=== PATIENT | female | born 1970 | race African-American/Black ===

== ENCOUNTER 2020-04-17 23:52 | Inpatient (IN) | payer MEDICAID ==
[~2020-04-17] VITALS: Ht 162.6 cm; Wt 78.0 kg
--- NOTE | 2020-04-18 00:18 | NUR ---
PT CAME TO ED FOR C/O CHEST PAIN 6/10 TIGHTNESS LIKE MIDSTERNAL RADIATING TO L SIDE OF NECK AND SHOULDER WELL ABDOMINAL PAIN 6/10 SHARP LIKE AFTER EATING DEL TACO. PT IS AAOX4, MILD DISTRESS NOTED. EKG DONE IN TRIAGE. MD UREÑA PERFORMED MSE. PT IN GOWN AND PLACED ON FULL CM, VSS. MEDICATED PER ORDERS, SEE EMAR FOR DETAILS. CALL LIGHT WITHIN REACH. WILL CONTINUE TO MONITOR PT.
[2020-04-18 00:43] LABS: BASOPHIL % 0.2 % (0-2); PLATELET COUNT 217 x10^3mcL (130-400)
[2020-04-18 00:46] LABS: RED CELL DISTRIBUTION WIDTH 15.5 % (11.5-14.5)
[2020-04-18 00:52] LABS: CALCIUM 8.5 mg/dL (8.5-10.1); CARBON DIOXIDE 22.6 mmol/L (21-32); POTASSIUM SERUM 3.8 mmol/L (3.5-5.1)
[2020-04-18 00:56] LABS: ALBUMIN 3.3 g/dL (3.4-5.0); BILIRUBIN TOTAL 0.42 mg/dL (0.20-1.00); TOTAL PROTEIN, SERUM 7.4 g/dL (6.4-8.2)
--- NOTE | 2020-04-18 02:09 | NUR ---
PATIENT IS MOANING/GROANING WITH COMPLAINT OF UPPER ABDOMINAL PAIN, AMBULATED TO THE BATHROOM.
--- NOTE | 2020-04-18 02:35 | NUR ---
SALINE LOCK INSERTED , PATIENT MEDICATED WITH LASIX AND MORPHINE. PATIENT WENT FOR CT SCAN.
--- NOTE | 2020-04-18 02:45 | NUR ---
PATIENT RETURN FROM CT REQUESTING TO HAVE DIAPER SO SHE CAN VOID,DOES NOT WANT TO GET UP TO THE BATHROOM. BED BRAMBILA WAS GIVEN, VOID SMALL AMOUNT.
--- NOTE | 2020-04-18 03:07 | NUR ---
NASAL SWAB SENT FOR [employer].
--- NOTE | 2020-04-18 03:50 | NUR ---
PATIENT HAS WOUND AVULSION OF THE RT 3RD FINGER. DRESSING AND SPLINT APPLIED. PATIENT MEDICATED WITH MOTRIN AND TYLENOL.
--- NOTE | 2020-04-18 04:01 | NUR ---
PATIENT IS WAITING FOR ADMISSION BED.
--- NOTE | 2020-04-18 04:05 | NUR ---
PATIENT D/C HOME.INSTRUCTION GIVEN.
--- NOTE | 2020-04-18 05:00 | NUR ---
PT CLEANED AND CHANGED INTO CLEAN AND DRY DIAPER. PT SHEET WAS CHANGED TO CLEAN SHEET. PT STOOD UP AT BEDSIDE AND ASSISTED WITH CLEANING AND CHANGING. PT A&OX4,NO ACUTE DISTRESS NOTED, RESP EVEN AND UNLABORED, RETURNED TO [facility] AND POSITIONED TO COMFORT.
[2020-04-18] MEDS ORDERED: LASIX20 MG PO (05:06)
[2020-04-18] MEDS ORDERED: ATORVASTATIN CA80 M1 PO (05:11)
[2020-04-18] MEDS ORDERED: CLOPIDOGREL75 M1 PO (05:11)
[2020-04-18] MEDS ORDERED: CARVEDILOL12.5 M1 PO (05:12)
--- NOTE | 2020-04-18 05:12 | NUR ---
REPORT WAS GIVEN TO YENY. PATIENT TRANSPORTED TO ROOM 234.
--- NOTE | 2020-04-18 05:14 | NUR ---
MD AWARE OF PATIENT'S HIGH BLOOD PRESSURE, NO NEW ORDER.
[2020-04-18 05:22] VITALS: BP 155/114
[2020-04-18 05:43] LABS: T3 TOTAL 0.89 ng/mL
[2020-04-18 05:50] LABS: FREE T4 1.38 ng/dL (0.76-1.46); FREE THYROXINE INDEX 3.3 ug/dL (1.4-4.5); T4(THYROXINE) 9.1 ug/dL (4.7-13.3)
--- NOTE | 2020-04-18 06:29 | NUR ---
ADMITTED THE PAIENT TO THE ROOM,PT WAS RECIEVEDTO THE BED MADE COMFORTABLE AND TELE MONITOR PUT ON THE PATIENMT AND IN NSR NO ECTOPY BUT WITH C/O OF CHEST PAIN RATE 3/10 ARCHING IN PAIN.ON INIATIL ASSESSMANT PT IS AAO REG RESP NO SOB R/A SAT 96%.ABDO IS SOFT OBESE WITH ACTIVE BOWEL SOUNDS,PT HAS HL TO THE RT AC SITE PATENT AND INTACT,TRACES OF EDEMA TO NABILA LLE WITH PALPABLE PULSES,PT WAS ORIENTED TO THE CALL LIGHT BED CONTROL BATHROONM AND CALL LIGHT MADE CLOSE TO THE PATIENT,MADE COMFORTABLE IN BED AND WILL CONTINUE TO MONITOR.
[2020-04-18 06:40] LABS: UA SPECIFIC GRAVITY 1.025 (1.005-1.035); microscopic required? YES; urine erythrocyte NEGATIVE (NEGATIVE)
[2020-04-18 07:19] LABS: AMPHETAMINE QUAL UR NONE DETECTED (See below)
--- NOTE | 2020-04-18 07:36 | NUR ---
RECEIVED PATIENT FROM HARPAL SAINI. PATIENT IN BED AT THIS TIME, APPEARS SOB. ASKS FOR ASSISTANCE TO BR, ABLE TO AMBULATE. UA SAMPLE COLLECTED. SPOKE WITH PATIENT ABOUT PLAN OF CARE TODAY INCLUDING MEDICATIONS AND TO WAIT FOR MEDICAL TEAM TO ARRIVE WELL LABORATORY TECHNOLOGY TEACHER. PATIENT AGREES. CALL LIGHT IN REACH AT THIS TIME.
[2020-04-18 07:41] VITALS: BP 124/84
[2020-04-18 09:13] LABS: CALCIUM 8.4 mg/dL (8.5-10.1); CARBON DIOXIDE 24.2 mmol/L (21-32); CREATININE SERUM 1.9 mg/dL (0.6-1.0); POTASSIUM SERUM 3.7 mmol/L (3.5-5.1)
[2020-04-18 09:40] LABS: BASOPHIL % 0.3 % (0-2); PLATELET COUNT 190 x10^3mcL (130-400); RED CELL DISTRIBUTION WIDTH 15.4 % (11.5-14.5)
--- NOTE | 2020-04-18 11:38 | NUR ---
DR VALLE AND DR HOLM IN TO SPEAK WITH PATIENT. STATES WE WILL WAIT FOR DR STEEL TO ARRIVE TO EVAL HER. PATIENT COMPLAINS OF EPIGASTRIC PAIN BUT NO N/V AT THIS TIME TIME. PRN MAALOX ORDERED IF NEEDED. ECHO TECHS NOW AT BEDSIDE FOR ECHO.
[2020-04-18 11:48] LABS: BILIRUBIN DIRECT 0.1 mg/dL (0.0-0.2); BILIRUBIN TOTAL 0.8 mg/dL (0.20-1.00); TOTAL PROTEIN, SERUM 6.7 g/dL (6.4-8.2)
[2020-04-18 11:52] LABS: ALBUMIN 3.2 g/dL (3.4-5.0)
[2020-04-18 11:59] VITALS: BP 114/74
[2020-04-18 16:11] VITALS: BP 117/75
--- NOTE | 2020-04-18 18:16 | NUR ---
PATIENT OBSERVED SEATED AT BEDSIDE AT THIS TIME EATING DINNER. ABOUT TO ADMINISTER NITRO PATCH AND PRN MAALOX. PATIENT STATES SHE WANTS TO WAIT UNTIL AFTER SHE HAS EATEN HER TRAY. WHEN GIVING PRN MAALOX, PATIENT SHOUTS THAT SHE IS IN PAIN AND SHE WANTS " A PILL, LIKE NORCO OR SOMETHING". PATIENT REFUSING PRN MAALOX AND GIVEN PRN NORCO. NITRO PATCH ADMINISTERED. PATIENT NOW OBESERVED AMBULATING DOWN HALLWAY ASKING FOR DIVISION SERVICE MANAGER. WILL CONTINUE TO MONITOR AND REORIENT PATIENT BACK TO ROOM.
--- NOTE | 2020-04-18 18:22 | NUR ---
PATIENT SHOUTING IN ROOM, STATING "HE DID NOT GIVE ME MY LIQUID MEDICATION". PATIENT SPEAKING OF PRN MAALOX WHICH SHE REFUSED AND NOW DENYING THAT SHE REFUSED. PRN MAALOX NOW GIVEN, PATIENT BEING AGGRESSIVE AT THIS TIME AND ASKING FOR A SPOON.
--- NOTE | 2020-04-18 19:30 | NUR ---
RECEIVED PT FROM AM NURSE QUENTIN, PT LAYING DOWN IN BED, BREATHING EVEN AND UNLABORED ON RA. PT AAOX4, ABLE TO FOLLOW COMMANDS AND MAKE NEEDS KNONW. TELE#27 [address]ING SR. DENIES CP/PRESSURE AT THIS TIME. PALPABLE PULSES TO ALL EXTREMETIES. TRACE EDEMA TO BLE NOTED. LUNG SOUNDS CTA, BREATHING EVEN AND UNLABORED ON RA. PT C/O MILD SOB ON EXERTION. ABD SOFT, ACTIVE BS X4 QUAD. PT C/O ABD DISCOMFORT AT THIS TIME. RATES PAIN AT 3/10. VOIDS FREELY, BRP. GENERALIZED WEAKNESS, AMBULATORY. RAC IV PATENT AND INTACT. SITE WNL. NO ACUTE DISTRESS NOTED. BED AT LOWEST SETTING. SIDE RAILS X2 UP. CALL LIGHT WITHING REACH. WILL CONT TO MONITOR.
[2020-04-18 20:44] VITALS: BP 140/90
--- NOTE | 2020-04-19 04:57 | NUR ---
PT SLEPT AT INTERVALS THROUGHOUT THE NIGHT, BREATHING EVEN AND UNLABORED ON RA. NO SIGNIFICANT CHANGE DURING SHIFT. ALL NEEDS ASSESSED AND ATTENDED TO. SAFETY PRECAUTIONS IN PLACE. CALL LIGHT WITHING REACH. WILL CONT TO MONITOR.
[2020-04-19 06:05] VITALS: BP 117/82
--- NOTE | 2020-04-19 07:08 | NUR ---
RECEIVED PATIENT FROM HARPAL MONTALVO. PATIENT IN BED SLEEPING AT THIS TIME, PER HARPAL MONTALVO, NO ACUTE EVENTS OVERNIGHT. WILL SPEAK WITH PATIENT ABOUT PLAN OF CARE AND EVALUATE COOPERATIVE-NESS, PATIENT WAS BEING AGGRESSIVE AT END OF SHIFT LAST NIGHT. WILL CONTINUE TO MONITOR.
[2020-04-19 07:09] LABS: BASOPHIL % 0.5 % (0-2); PLATELET COUNT 208 x10^3mcL (130-400)
[2020-04-19 07:34] LABS: CALCIUM 8.7 mg/dL (8.5-10.1); CREATININE SERUM 1.7 mg/dL (0.6-1.0); MAGNESIUM 2.1 mg/dL (1.8-2.4); PHOSPHOROUS 3.4 mg/dL (2.5-4.9); POTASSIUM SERUM 3.6 mmol/L (3.5-5.1)
[2020-04-19 07:39] LABS: RED CELL DISTRIBUTION WIDTH 15.7 % (11.5-14.5)
--- NOTE | 2020-04-19 07:55 | NUR ---
PATIENT NOW AWAKE, DENIES ANY CHEST PAIN OR SOB. SPOKE WITH PATIENT ABOUT MEDICATION PLAN TODAY AND PATIENT IS CALM AND AGREEABLE. WILL WAIT FOR MEDICAL RESIDENTS TO ARRIVE AND SPEAK WITH PATIENT. CALL LIGHT IN REACH.
[2020-04-19 08:24] VITALS: BP 118/84
[2020-04-19 11:27] VITALS: BP 126/82
[2020-04-19 17:42] VITALS: BP 130/92
--- NOTE | 2020-04-19 18:32 | NUR ---
PATIENT OBSERVED SEATED AT BEDSIDE, EATING BREAKFAST TRAY. STATES SHE IS STILL HAVING EPIGASTRIC PAIN. PRN NORCO GIVEN. DENIES CHEST PAIN OR DISCOMFORT. WILL ENDORSE TO ONCOMING NURSE.
--- NOTE | 2020-04-19 19:42 | NUR ---
Received pt awake alert and oriented x4, watching TV. Very pleasant, no c/o pain and no respiratory distress noted. Ice given per pt request. Skin clear. IV to ADALI patent and intact. Will continue to monitor.
--- NOTE | 2020-04-19 20:30 | NUR ---
Pt requesting a breathing tx. Called MD to request and new orders carried out. Oxygen sat is 97 % on RA. No SOB noted. Lungs diminished in the bases.
[2020-04-19 20:50] VITALS: BP 130/92
[2020-04-19 21:14] VITALS: BP 124/91
--- NOTE | 2020-04-19 23:50 | NUR ---
IV to R AC removed, unable to flush it and pt c/o pain. New IV started to R DAILEY 22 gauge. Pt tolerated well. Snacks given. Continuing to monitor
[2020-04-20 06:05] VITALS: BP 158/92
[2020-04-20 07:20] LABS: BASOPHIL % 0.5 % (0-2); PLATELET COUNT 203 x10^3mcL (130-400)
--- NOTE | 2020-04-20 07:21 | NUR ---
RECEIVED PATIENT FROM HARPAL NELSON. PATIENT IN BED SLEEPING AT THIS TIME. NO S/S OF CHEST PAIN, DISTRESS, OR DISCOMFORT. WILL SPEAK WITH PATIENT ABOUT PLAN OF CARE TODAY ONCE AWAKE. WILL ALSO WAIT FOR PORTABLE TRACK CREW CHIEF GIRMA TO ARRIVE TO SEE PATIENT. PER DR STEEL YESTERDAY, PATIENT STILL NEEDS DIURESIS WITH IV LASIX. CALL LIGHT IN REACH.
[2020-04-20 07:43] LABS: CALCIUM 8.7 mg/dL (8.5-10.1); CARBON DIOXIDE 25.3 mmol/L (21-32); CREATININE SERUM 1.6 mg/dL (0.6-1.0); MAGNESIUM 2.2 mg/dL (1.8-2.4)
--- NOTE | 2020-04-20 07:43 | NUR ---
PATIENT NOW AWAKE AND ALERT. OBERSEVED SEATED AT BEDSIDE EATING BREAKFAST TRAY. STITCHER SPECIAL MACHINE GIRMA ARRIVED TO SEE PATIENT, STATES SHE WILL DISCHARGE PATIENT TODAY. PATIENT AGREES. WILL COMPILE DISCHARGE ONCE COMPLETE, AND PATIENT ASKED FOR ADDITIONAL CLOTHING.
[2020-04-20 07:49] VITALS: BP 139/105
[2020-04-20 08:10] LABS: RED CELL DISTRIBUTION WIDTH 15.9 % (11.5-14.5)
[2020-04-20] MEDS ORDERED: COL100 PO (09:14)
[2020-04-20] MEDS ORDERED: BAY PO (09:14)
[2020-04-20] MEDS ORDERED: MAAL PO (09:14)
[2020-04-20] MEDS ORDERED: PEPCID AC20 M2 PO (09:15)
[2020-04-20 09:34] VITALS: BP 130/94
[2020-04-20 09:37] VITALS: BP 130/94
--- NOTE | 2020-04-20 10:20 | NUR ---
DISCHARGE COMPILED AND PRINTED. DISCUSSED WITH PATIENT NEED FOR NEW PRESCRIPTIONS FOR GI UPSET AND GASTRITIS. ALSO THAT PATIENT NEEDS TO FU WITH PCP WITHIN NEXT FEW DAYS. PATIENT AWARE AND AGREES. PATIENT ALSO ASKED FOR WALKER AT THIS TIME, PATIENT OBSERVED AMBULATING WITHOUT ASSISTANCE FOR PAST THREE DAYS AND INFORMED HER THAT HER PCP HAS TO REFER A WALKER FOR HER. PATIENT AGREES. ALSO DISCUSSED WITH PATIENT TO AVOID ILLICIT DRUG USAGE TO PREVENT FURTHER EPISODES OF CHEST PAIN AND PATIENT AWARE. IV CATHETER REMOVED AND INTACT, TELE REMOVED AND RETURNED TO [facility]. SIGNATURES OBTAINED, PATIENT WITH BELONGINGS ESCORTED DOWN TO LOBBY VIA WHEELCHAIR WITH ALDO ESCALERA. ALL QUESTIONS ADDRESSED AT THIS TIME
== END 2020-04-20 10:02 | disposition home or self-care (01) | DRG 194 ==
LOC: ED 23:52 → DU 04-18 03:17
PROVIDERS: Student in an Organized Health Care Education/Training Program; ADMIT Internal Medicine; ATTEND Internal Medicine
DX: I11.0 Hypertensive heart disease with heart failure (principal); N17.0 Acute kidney failure with tubular necrosis; E87.5 Hyperkalemia; E66.9 Obesity, unspecified; J44.9 Chronic obstructive pulmonary disease, unspecified; I50.23 Acute on chronic systolic (congestive) heart failure; F14.90 Cocaine use, unspecified, uncomplicated; F12.90 Cannabis use, unspecified, uncomplicated; K52.9 Noninfective gastroenteritis and colitis, unspecified; F19.10 Other psychoactive substance abuse, uncomplicated; Z20.828 Contact with and (suspected) exposure to other viral communicable diseases; I25.10 Atherosclerotic heart disease of native coronary artery without angina pectoris; I25.5 Ischemic cardiomyopathy; I25.2 Old myocardial infarction; Z79.899 Other long term (current) drug therapy; Z86.73 Personal history of transient ischemic attack (TIA), and cerebral infarction without residual deficits; Z95.818 Presence of other cardiac implants and grafts; Z91.19 Patient's noncompliance with other medical treatment and regimen; Z68.30 Body mass index [BMI] 30.0-30.9, adult; Z95.1 Presence of aortocoronary bypass graft; Z79.82 Long term (current) use of aspirin; Z71.89 Other specified counseling
CPT/HCPCS: 83880; 84439; C9113; G0378; J1940; J2270; Q0092

== ENCOUNTER 2020-05-22 17:07 | Emergency (ER) | payer MEDICAID ==
[~2020-05-22] VITALS: Ht 162.6 cm; Wt 81.6 kg
[~2020-05-22 17:07] MED LIST: ATORVASTATIN CA80 M1 PO; BAY PO; CARVEDILOL12.5 M1 PO; CLOPIDOGREL75 M1 PO; COL100 PO; LASIX20 MG PO; MAAL PO; PEPCID AC20 M2 PO
[2020-05-22 17:56] VITALS: Ht 162.6 cm; Wt 81.6 kg
[2020-05-22 20:13] VITALS: BP 142/102
== END 2020-05-22 19:29 | disposition home or self-care (01) ==
LOC: ED 17:07
DX: L02.412 Cutaneous abscess of left axilla (principal); I50.9 Heart failure, unspecified; I11.0 Hypertensive heart disease with heart failure; J44.9 Chronic obstructive pulmonary disease, unspecified
CPT/HCPCS: J1885